=== PATIENT | female | born 1955 | race Caucasian/White ===

== ENCOUNTER 2025-05-17 07:18 | Inpatient (IN) | payer MEDICARE, OTHER ==
[2025-05-17] MEDS ORDERED: Sodium Chloride 0.9% 10 ML Syringe FLUSH PRN (07:38)
[2025-05-17 07:45] LABS: BASOPHILS PERCENT AUTO 0.1 % (0.0-1.0); EOSINOPHILS PERCENT AUTO 0.3 % (1.0-3.0); LYMPHOCYTES PERCENT AUTO 4.5 % (20.5-50.1); MONOCYTES PERCENT AUTO 3.3 % (2-8); NEUTROPHILS PERCENT AUTO 91.8 % (42.2-75.2); PLATELET COUNT,PLT 197 10^3/uL (150-450); RED BLOOD CELL COUNT 4.25 10^6/uL (4.2-5.4); WHITE BLOOD CELL COUNT,WBC 14.4 10^3/uL (5.0-10.0)
[2025-05-17 07:46] LABS: APPEARANCE,URINE CLOUDY (CLEAR); GLUCOSE,URINE NEGATIVE (NEGATIVE); OCCULT BLOOD,URINE MODERATE (NEGATIVE)
[2025-05-17 07:59] LABS: EPITHELIAL CELLS,URINE FEW /HPF (NOT SEEN)
[2025-05-17] MEDS: Ondansetron 4 MG/2 ML SDV IVPUSH ONE (08:00)
[2025-05-17 08:05] LABS: A/G RATIO 0.81; ALANINE AMINOTRANSFERASE,ALT 28.0 U/L (14-59); ASPARTATE AMNIOTRANSFERASE,AST 25.0 U/L (15-37); BILIRUBIN TOTAL 0.9 mg/dL (0.2-1.0); BLOOD UREA NITROGEN,BUN 15.0 mg/dL (7-18); CARBON DIOXIDE,CO2 27.0 mmol/L (21-32); CHLORIDE,CL 104.0 mmol/L (98-107); CREATININE 0.79 mg/dL (0.55-1.02); EST CRCL DRUG DOSING (CG) 56.4 mL/min; ESTIMATED GFR 80.0 mL/min (>=60); GLUCOSE RANDOM 128.0 mg/dL (70-99); POTASSIUM,K 3.8 mmol/L (3.5-5.1); PROTEIN TOTAL,TP 6.7 g/dL (6.4-8.2); SODIUM,NA 138.0 mmol/L (136-145)
[2025-05-17] MEDS: Iopamidol 755 Mg/ML 100 ML Bottle IVPUSH ONE (10:11)
[2025-05-17] MEDS ORDERED: Sennosides/Docusate Sodium 50-8.6 MG Tab PO PRN (14:24)
[2025-05-17] MEDS: Heparin Sodium 5,000 Units/ML Vial SUBCUT SCH (17:04)
[2025-05-17] MEDS ORDERED: Ondansetron 4 MG/2 ML SDV IVPUSH PRN (21:07)
[2025-05-18 06:11] LABS: BASOPHILS PERCENT AUTO 0.3 % (0.0-1.0); EOSINOPHILS PERCENT AUTO 0.6 % (1.0-3.0); LYMPHOCYTES PERCENT AUTO 18.9 % (20.5-50.1); MONOCYTES PERCENT AUTO 17.3 % (2-8); NEUTROPHILS PERCENT AUTO 62.9 % (42.2-75.2); PLATELET COUNT,PLT 154 10^3/uL (150-450); RED BLOOD CELL COUNT 3.50 10^6/uL (4.2-5.4); WHITE BLOOD CELL COUNT,WBC 6.9 10^3/uL (5.0-10.0)
[2025-05-18 06:29] LABS: BLOOD UREA NITROGEN,BUN 14.0 mg/dL (7-18); CARBON DIOXIDE,CO2 31.0 mmol/L (21-32); CHLORIDE,CL 107.0 mmol/L (98-107); CREATININE 0.79 mg/dL (0.55-1.02); EST CRCL DRUG DOSING (CG) 56.4 mL/min; GLUCOSE RANDOM 113.0 mg/dL (70-99); POTASSIUM,K 3.6 mmol/L (3.5-5.1); SODIUM,NA 139.0 mmol/L (136-145)
[2025-05-18 07:04] LABS: ESTIMATED GFR 80.0 mL/min (>=60)
[2025-05-18] MEDS ORDERED: Non-Formulary Medication 1 Each (Terbinafine Hcl [Terbinafine Hcl] 250 MG Tablet) PO SCH (09:00)
[2025-05-18] MEDS: buPROPion 150 MG Tab.ER PO SCH (09:53)
[2025-05-18 12:41] LABS: IRON,FE 21.0 ug/dL (50-170); PERCENT FE SATURATION 11.2 % (20.0-50.0)
[2025-05-18 12:58] LABS: FOLIC ACID 20.0 ng/mL (8.6-58.9)
[2025-05-19 06:27] LABS: BASOPHILS PERCENT AUTO 0.1 % (0.0-1.0); EOSINOPHILS PERCENT AUTO 1.9 % (1.0-3.0); LYMPHOCYTES PERCENT AUTO 20.7 % (20.5-50.1); MONOCYTES PERCENT AUTO 16.5 % (2-8); NEUTROPHILS PERCENT AUTO 60.8 % (42.2-75.2); PLATELET COUNT,PLT 168 10^3/uL (150-450); RED BLOOD CELL COUNT 3.49 10^6/uL (4.2-5.4); WHITE BLOOD CELL COUNT,WBC 6.7 10^3/uL (5.0-10.0)
[2025-05-19 06:43] LABS: BLOOD UREA NITROGEN,BUN 9.0 mg/dL (7-18); CARBON DIOXIDE,CO2 30.0 mmol/L (21-32); CHLORIDE,CL 110.0 mmol/L (98-107); CREATININE 0.64 mg/dL (0.55-1.02); EST CRCL DRUG DOSING (CG) 69.62 mL/min; GLUCOSE RANDOM 93.0 mg/dL (70-99); POTASSIUM,K 3.7 mmol/L (3.5-5.1); SODIUM,NA 142.0 mmol/L (136-145)
[2025-05-19 06:50] LABS: ESTIMATED GFR 94.0 mL/min (>=60)
== END 2025-05-19 15:30 | disposition home or self-care (01) | DRG 872 ==
LOC: DL.ED 07:18 → DL.MS 12:08
PROVIDERS: ADMIT Internal Medicine; ATTEND Internal Medicine
DX: A41.51 Sepsis due to Escherichia coli [E. coli] (principal); D72.825 Bandemia; R50.9 Fever, unspecified; J96.01 Acute respiratory failure with hypoxia; Z88.8 Allergy status to other drugs, medicaments and biological substances; N39.0 Urinary tract infection, site not specified; I10 Essential (primary) hypertension; E78.00 Pure hypercholesterolemia, unspecified; F32.A Depression, unspecified; H54.7 Unspecified visual loss; J45.909 Unspecified asthma, uncomplicated; B35.1 Tinea unguium; G47.33 Obstructive sleep apnea (adult) (pediatric); D64.9 Anemia, unspecified; Z88.6 Allergy status to analgesic agent; Z79.899 Other long term (current) drug therapy; Z90.49 Acquired absence of other specified parts of digestive tract; Z98.84 Bariatric surgery status; Z90.710 Acquired absence of both cervix and uterus
CPT/HCPCS: 36415; 71046; 71275; 80048; 80053; 81001; 82272; 82607; 82746; 83540; 83550; 83605; 83735; 84484; 85025; 85379; 87040; 87077; 87086; 87088; 87186; 93005; 93010; 94010; 96361; 96374; 96375; 99223; 99232; 99239; 99285; 99285-25; A9270-GY; J0696; J1644; J2405; J7030; J7040; Q9967